=== PATIENT | male | born 1990 | race Hispanic/Latino ===

== ENCOUNTER 2016-11-18 08:54 | Emergency (ER) | payer BC, OTHER ==
[2016-11-18 09:01] VITALS: BMI 24.4
[2016-11-18 09:05] VITALS: RESP 18; TEMP 98.5
[2016-11-18] MEDS ORDERED: Albuterol 0.083% Inhal Sol (2.5 mg/3 mL) UD IH STA (09:30)
[2016-11-18] MEDS ORDERED: TDAP Vaccine 0.5 mL Syr IM ONE (09:30)
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
[2016-11-18] MEDS ORDERED: Lidocaine 1%/Epinephrine 1:100000 30 ml vial IJ ONE (11:09)
[2016-11-18] MEDS ORDERED: Albuterol-Ipratrop 3 mg / 0.5 (3 ml) UD IH STA (11:21)
--- NOTE | 2016-11-18 11:45 | RAD ---
HISTORY: cough/wheezing COMPARISON: No prior. FINDINGS: LUNGS: No active pulmonary disease. PLEURA: No significant pleural effusion identified, no pneumothorax apparent. CARDIOVASCULAR: Normal. OSSEOUS STRUCTURES: No significant abnormalities. VISUALIZED UPPER ABDOMEN: Normal. OTHER FINDINGS: None. IMPRESSION: No active disease.
[2016-11-18] MEDS ORDERED: Amoxicillin-Clav 875-125 mg Tab PO STA (12:04)
[2016-11-18 12:48] VITALS: PULSE 78; O2SAT 97
[2016-11-18 12:50] VITALS: BP 132/81
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
== END 2016-11-18 13:12 | disposition home or self-care (01) ==
LOC: ED 08:54
DX: J40 Bronchitis, not specified as acute or chronic (principal); S00.551A Superficial foreign body of lip, initial encounter; W34.010A Accidental discharge of airgun, initial encounter; Z23 Encounter for immunization